=== PATIENT | female | born 1960 | race Caucasian/White ===

== ENCOUNTER 2024-01-07 07:26 | Day surgery (SDC) | payer MEDICARE, BC ==
[2024-01-07] MEDS ORDERED: Depo-Medrol 40 MG/ML IM ONE (07:27)
[2024-01-07] MEDS ORDERED: LIDOCAINE HCL 2% 100 MG/5 ML IJ ONE (07:27)
[2024-01-07] MEDS ORDERED: Lactated Ringers 1,000 ML IV ONE (08:55)
[2024-01-07] MEDS ORDERED: DIPRIVAN 200 MG/20 ML IV ONE (09:23)
--- NOTE | 2024-01-07 11:25 | XRAY ---
Indication: Bilateral L4-S1 MBB. Intraoperative fluoroscopy provided for 18 seconds. Single digital spot image submitted for interpretation demonstrates posterior needle tips projecting over the expected left and right L4-S1 nerve roots. Correlate with intraoperative findings/report. Incidental bilateral L4-S1 fusion hardware.
--- NOTE | 2024-01-07 12:06 | XRAY ---
18 seconds of fluoroscopy was used in surgery for a right L4-S1 MBB.
== END 2024-01-07 09:56 | disposition home or self-care (01) ==
LOC: SDC-PAIN 07:26
PROVIDERS: ATTEND Psychiatry & Neurology Pain Medicine
DX: M47.816 Spondylosis without myelopathy or radiculopathy, lumbar region (principal)
CPT/HCPCS: 64493; 64494; 72020; 77002; J1030; J2704

== ENCOUNTER 2024-01-28 13:22 | Day surgery (SDC) | payer MEDICARE, BC ==
[2024-01-28] MEDS ORDERED: BUPIVACAINE 0.5% VIAL IJ ONE (13:23)
[2024-01-28] MEDS ORDERED: Depo-Medrol 40 MG/ML IM ONE (13:23)
[2024-01-28] MEDS ORDERED: Lactated Ringers 1,000 ML IV ONE (16:04)
[2024-01-28] MEDS ORDERED: DIPRIVAN 200 MG/20 ML IV ONE (16:26)
[2024-01-28] MEDS ORDERED: ROBINUL ONE (16:30)
--- NOTE | 2024-01-28 19:14 | XRAY ---
Indication: Bilateral L4-S1 MBB. Intraoperative fluoroscopy provided for 27 seconds. 2 digital spot image submitted for interpretation demonstrates posterior needle tips projecting over the expected left and right L4-S1 nerve roots. Correlate with intraoperative findings/report. Incidental bilateral L4-S1 fusion hardware.
--- NOTE | 2024-01-29 09:19 | XRAY ---
27 seconds of fluoroscopy was used in surgery for a right L4-S1 MBB.
== END 2024-01-28 16:56 | disposition home or self-care (01) ==
LOC: SDC-PAIN 13:22
PROVIDERS: ATTEND Psychiatry & Neurology Pain Medicine
DX: M47.816 Spondylosis without myelopathy or radiculopathy, lumbar region (principal)
CPT/HCPCS: 64493; 64494; 72020; 77002; J1030; J2704

== ENCOUNTER 2024-03-03 12:29 | Day surgery (SDC) | payer MEDICARE, BC ==
[2024-03-03] MEDS ORDERED: BUPIVACAINE 0.5% VIAL IJ ONE (12:30)
[2024-03-03] MEDS ORDERED: LIDOCAINE HCL 1% 50 MG/5 ML VL PF IJ ONE (12:30)
[2024-03-03] MEDS ORDERED: Depo-Medrol 40 MG/ML IM ONE (12:30)
[2024-03-03] MEDS ORDERED: DIPRIVAN 200 MG/20 ML IV ONE ×2 (14:24→14:38)
[2024-03-03] MEDS ORDERED: Lactated Ringers 1,000 ML IV ONE (15:03)
--- NOTE | 2024-03-03 16:50 | XRAY ---
Indication: Right L4-S1 RFA Intraoperative fluoroscopy provided for 39 seconds. 4 digital spot images submitted for interpretation demonstrates posterior needle tips projecting over the expected right L4-S1 nerve roots. Correlate with intraoperative findings/report. Incidental bilateral L4-S1 fusion hardware.
--- NOTE | 2024-03-03 17:14 | XRAY ---
39 seconds of fluoroscopy was used in surgery for a right L4-S1 RFA.
== END 2024-03-03 15:05 | disposition home or self-care (01) ==
LOC: SDC-PAIN 12:29
PROVIDERS: ATTEND Psychiatry & Neurology Pain Medicine
DX: M47.816 Spondylosis without myelopathy or radiculopathy, lumbar region (principal)
CPT/HCPCS: 64635; 64636; 72100; 77002; J1010; J2001; J2704